=== PATIENT | female | born 1990 | race Caucasian/White ===

== ENCOUNTER 2019-11-07 12:21 | Emergency (ER) | payer MEDICAID ==
[~2019-11-07] VITALS: Ht 152.4 cm; Wt 68.0 kg
--- NOTE | 2019-11-07 12:29 | Emergency Room Report ---
History of Present Illness General Chief Complaint: Allergic Reaction Source: Patient Present Illness HPI Disclaimer: Please note that this report is being documented using DRAGON technology. This can lead to erroneous entry secondary to incorrect interpretation by the dictating instrument. HPI: 21-year-old female presents for evaluation of allergic reaction. That she was states she was clearing some brush 4 days ago and noticed an itchy and vesicular rash over the wrists, ankles, legs and spread to her back. Denies stridor, wheezing, throat swelling, tongue swelling, loss of consciousness, vomiting. Reported some loose stools. Denied fever, chills, chest pain, palpitations. Believes she was exposed to poison oak. Similar reaction to poison oak in the past. She has been treating herself with cortisone cream, calamine lotion, topical zinc lotion. Notes worsening burning, itching, swelling over the extremities and trunk. PMH: Denied PSH: Denied Allergies: Doxycycline, poison agustin, poison oak Social Hx: Denied alcohol or drug abuse Allergies: Coded Allergies: DOXYCYCLINE (Verified Allergy, Unknown, 11/07/19) Uncoded Allergies: POISON AGUSTIN (Allergy, Unknown, 11/07/19) COVID-19 Screening Contact w/high risk pt: No Recent Travel to affected area: No Experienced COVID-19 symptoms?: No COVID-19 Testing performed VOIP ENGINEER: No Patient History Last Menstrual Period: on her period Now: No Nursing Documentation-PMH Past Medical History: No Stated History Review of Systems All Other Systems: negative except mentioned in HPI Physical Exam Vital Signs Date Time Temp Pulse Resp B/P (MAP) Pulse Ox O2 Delivery O2 Flow Rate FiO2 11/07/19 12:23 98.8 87 20 123/84 (97) 98 Room Air General: Awake and alert, appears uncomfortable HEENT: NC/AT. EOMI. noninjected sclera. No stridor. Tolerating secretions. Cardiovascular: RRR. S1 and S2 normal. No murmur appreciated Resp: Normal work of breathing. No cough, wheezing or crackles appreciated Abdomen: Abdomen is soft, nondistended. Nontender Skin: Diffuse patches of edema over the upper and lower extremities particularly over the wrist, ankles, upper thighs and lower back as well as mild erythema overlying the neck without significant edema. There are small vesicular lesions are near the wrists and ankles. Negative Nikolsky. No active bleeding, no purulent drainage. MSK: Normal tone and bulk. Moving all extremities. No obvious deformity. Neuro: Awake and alert. Mentating appropriately. Medical Decision Making Diagnostic Impression: Primary Impression: Allergic reaction ER Course 29-year-old female presenting with 3 days worsening rash. Differential includes but is not limited to atopic dermatitis, eczema, psoriasis, to name a few. Most consistent with an allergic reaction secondary to poison oak. Patient arrives with stable vital signs but appears uncomfortable. No signs of anaphylaxis. Patient was treated with IV steroids, IV Benadryl, Zyrtec monitored in the emergency department. She reports less itching and less pain and discomfort overall. Vital signs remained stable during ED stay. Will continue on oral steroids and antihistamines. Also prescribe patient an EpiPen should she have a worsening reaction at some point in the future. Encouraged allergy testing and outpatient PMD evaluation. Discussed reasons to return to the emergency department. She understands and agrees with this treatment plan. Last Vital Signs Date Time Temp Pulse Resp B/P (MAP) Pulse Ox O2 Delivery O2 Flow Rate FiO2 11/07/19 12:23 98.8 87 20 123/84 (97) 98 Room Air Disposition: HOME, SELF-CARE Condition: Stable Scripts Epinephrine (Epipen 2-Triston) 0.3 Mg/0.3 Ml Auto.injct 0.3 MG IM ONCE for 1 Day, #1 EA Prov: Raji Ruiz MD 11/07/19 Cetirizine Hcl* (ZYRTEC*) 10 Mg Tablet 10 MG ORAL DAILY, #5 TAB 0 Refills Prov: Raji Ruiz MD 11/07/19 Diphenhydramine Hcl (BENADRYL ALLERGY) 25 Mg Tablet 25 MG PO Q6HR for 5 Days, #20 TAB Prov: Raji Ruiz MD 11/07/19 Prednisone* (PREDNISONE*) 20 Mg Tablet 40 MG ORAL DAILY for 5 Days, #10 TAB Prov: Raji Ruiz MD 11/07/19 Raji Ruiz MD Nov 07, 2019 12:29
[2019-11-07] MEDS ORDERED: Solu-MEDROL 125mg Inj IVP ONE (12:30)
[2019-11-07] MEDS ORDERED: DiphenhydrAMINE 50mg/ml Inj IVP ONE (12:30)
[2019-11-07 13:34] VITALS: BP 123/84
[2019-11-07] MEDS ORDERED: Ketorolac 30mg Inj IV ONE (14:00)
[2019-11-07] MEDS ORDERED: BENADRYL ALLERG25 M1 PO (14:08)
[2019-11-07] MEDS ORDERED: PREDNISONE20 MG ORAL (14:08)
[2019-11-07] MEDS ORDERED: EPIPEN 2-P0.3 MG/0.3 IM (14:08)
[2019-11-07] MEDS ORDERED: ZYRTEC10 MG ORAL (14:08)
[2019-11-07 14:16] VITALS: BP 123/84
== END 2019-11-07 14:20 | disposition home or self-care (01) ==
LOC: EMR 12:40
DX: T78.40XA Allergy, unspecified, initial encounter (principal); X58.XXXA Exposure to other specified factors, initial encounter
CPT/HCPCS: 96374; 96375; J1200; J1885; J2930; Z7502; 99284